=== PATIENT | male | born 1960 | race Caucasian/White ===

== ENCOUNTER 2022-08-13 08:48 | Emergency (ER) | payer BC ==
[2022-08-13 09:12] VITALS: BP 131/80; PULSE 65
== END 2022-08-13 12:07 | disposition home or self-care (01) ==
LOC: JD.ED 08:48
DX: S50.311A Abrasion of right elbow, initial encounter (principal); E78.00 Pure hypercholesterolemia, unspecified; I10 Essential (primary) hypertension; M10.9 Gout, unspecified; Z91.018 Allergy to other foods; Z79.82 Long term (current) use of aspirin; Z79.899 Other long term (current) drug therapy; Z86.16 Personal history of COVID-19; W17.89XA Other fall from one level to another, initial encounter
CPT/HCPCS: 71048; 71048-26; 99283